=== PATIENT | female | born 1985 | race African-American/Black ===

== ENCOUNTER → 2019-04-13 | Outpatient (CLI) | payer OTHER ==
[2015-10-21 14:30] VITALS: BP 123/78
[~2019-04-13] MED LIST: ALBU2.5V8 IH; FLUT250D IH; HYDR-2761 PO; NAPR500T8 PO; OXYC1TAB15 PO; TRAM50TA PO
--- NOTE | 2019-04-13 11:24 | KCIC ---
MR of the right knee HISTORY: Right knee injury. Anterior pain after 2 recent falls. TECHNIQUE: Routine multiplanar sequences are obtained. FINDINGS: No evidence of medial meniscal tear. No evidence of lateral meniscal tear. Lateral meniscus is incompletely discoid. Anterior and posterior cruciate ligaments are intact. Medial collateral ligament is intact. Iliotibial band unremarkable. The fibular collateral ligament, biceps femoris tendon and popliteus tendon are intact. Extensor mechanism is intact. Trace joint effusion. Mild chondromalacia of the patella. No aggressive bone destruction. No acute fracture. No significant Resendiz's cyst. IMPRESSION: 1. Mild chondromalacia the patella. 2. No evidence of meniscal tear or internal derangement. Electronically signed by: Tavo Saul MD (04/13/2019 11:21 AM) [id number]
== END | disposition home or self-care (01) ==
LOC: KCIC MRI 08:30
PROVIDERS: ATTEND Physician Assistant Medical
DX: S86.891A Other injury of other muscle(s) and tendon(s) at lower leg level, right leg, initial encounter (principal); M22.41 Chondromalacia patellae, right knee; M25.361 Other instability, right knee; X58.XXXA Exposure to other specified factors, initial encounter; Y93.89 Activity, other specified; Y92.89 Other specified places as the place of occurrence of the external cause; Y99.8 Other external cause status
CPT/HCPCS: 73721

== ENCOUNTER → 2020-03-17 | Outpatient (CLI) | payer MEDICAID, OTHER ==
[2015-10-21 14:30] VITALS: BP 123/78
--- NOTE | 2020-03-17 11:56 | KCIC ---
Examination: MRI of the left knee without contrast HISTORY: History of anterior left knee pain COMPARISON: None available Technique: Multiplanar, multisequence MR imaging of the left knee was performed without contrast FINDINGS: The anterior cruciate ligament, posterior cruciate ligament appear intact. The medial meniscus, lateral meniscus appear intact. The medial collateral ligament is intact. Lateral collateral ligamentous complex including the fibular collateral ligament, biceps femoris, popliteus tendon appear intact. The extensor mechanism appears intact. The medial, lateral retinaculum appears intact. Mild increased T2 signal identified in the Hoffa's fat pad deep to the infrapatellar tendon laterally. Small knee joint effusion with a small popliteal cyst. The cartilage in the medial, lateral compartment grossly appears unremarkable. Minimal superficial fraying of cartilage identified in the patella. IMPRESSION: 1. Increased T2 signal identified in the Hoffa's fat pad deep to the infrapatellar tendon laterally likely secondary to impingement. 2. Small knee joint effusion with small popliteal cyst. 3. Grade I chondromalacia patella. Electronically signed by: Tonio Mitchell MD (03/17/2020 11:53 AM) [id number]
== END ==
LOC: KCIC MRI 08:08
PROVIDERS: ATTEND Physician Assistant Medical
DX: M25.462 Effusion, left knee (principal); M71.22 Synovial cyst of popliteal space [Baker], left knee; M22.42 Chondromalacia patellae, left knee; M79.4 Hypertrophy of (infrapatellar) fat pad
CPT/HCPCS: 73721